=== PATIENT | female | born 1975 | race Caucasian/White ===

== ENCOUNTER → 2016-05-19 | Day surgery (SDC) | payer OTHER ==
[2016-05-09 10:42] VITALS: BMI 29.0
--- NOTE | 2016-05-09 11:04 | PAT Medication Instructions ---
Service Date May 09, 2016. Current Home Medication List Oachrad-Icwqkarnajdtz-Occmkofl (Excedrin Extra Strength), 2 TAB PEG PRN Ibuprofen (Advil), 400 MG PO PRN Multivitamin (Multivitamin), 1 TAB PO QAM Medication Instructions For Your Scheduled Surgery - Check with surgeon for instructions: Karnyqi-Ozypawcgzqjbi-Fvlybrjq (Excedrin Extra Strength), 2 TAB PEG PRN Ibuprofen (Advil), 400 MG PO PRN - Hold the following medications the morning of surgery: Multivitamin (Multivitamin), 1 TAB PO QAM If you have any questions please call us at [phone] (Sarika Hayes PA-C) or [phone] or [phone]
[2016-05-09 11:30] LABS: BASO % 0.5 %; BASO ABS # 0.04 K/uL (0-0.2); COMPLETE YES; EOS % 2.2 %; HEMATOCRIT 38.3 % (37-47); IG% 0.1 %; LYMPH % 25.2 %; LYMPH ABS # 1.84 K/uL (1.2-3.4); MEAN CELL VOLUME 85.5 fL (80-100); MEAN CORPUSCULAR HEMOGLOBIN 29.9 pg (25-34); MEAN PLATELET VOLUME 9.5 fL (7.4-10.4); PLATELET COUNT 249 K/uL (130-400); RED BLOOD COUNT 4.48 M/uL (4.2-5.4); WHITE BLOOD COUNT 7.29 K/uL (4.8-10.8)
[~2016-05-19] VITALS: Ht 165.1 cm; Wt 80.0 kg
[~2016-05-19] MED LIST: ASPI-391 PEG; ATROPINE SULFATE 0.1 MG/ML 5ML SYR IV PRN; DEXAMETHASONE SOD INJ 4 MG/ML VIAL ONE; DiphenhydrAMINE HCL 50 MG/ML VIAL ONE; FENTANYL CITRATE INJ 50 MCG/1 ML 2 ML VIAL ONE; GLYCOPYRROLATE INJ 0.2 MG/ML VIAL ONE; IBUP-1050 PO; IBUPROFEN 600 MG TAB PO PRN; KETOROLAC TROMETHAMINE 30 MG/ML VIAL IV. PRN; KETOROLAC TROMETHAMINE 30 MG/ML VIAL ONE; LACTATED RINGER'S 1000ML 1,000 ML IV SCH; LARYING-O-JET KIT (LTA) EXT ONE; LIDOCAINE HCL 2% 2 ML VIAL (20MG/ML) ONE; METOCLOPRAMIDE HCL INJ 5 MG/ML 2 ML VIAL ONE; MIDAZOLAM HCL 1 MG/ML 2ML VIAL ONE; MULT-506 PO; NEOSTIGMINE METHYLSULFATE 5 MG/5 ML SYR ONE; ONDANSETRON INJ 2 MG/ML 2 ML VIAL IV PRN; ONDANSETRON INJ 2 MG/ML 2 ML VIAL ONE; OXYCODONE/ACETAMINOPHEN 5-325 TAB PO PRN; PROMETHAZINE HCL INJ 12.5 MG in SODIUM CHLORIDE 0.9% 50ML 50 ML IV PRN; PROMETHAZINE HCL INJ 25 MG in SODIUM CHLORIDE 0.9% 50ML 50 ML IV PRN; PROPOFOL IV EMULSION 10 MG/ML 20 ML VIAL IV ONE; ROCURONIUM BROMIDE 10 MG/ML 5 ML VIAL ONE; SODIUM CHLORIDE 0.9% 1000ML 1,000 ML IV SCH
[2016-05-19 09:49] VITALS: BP 107/71; PULSE 69; TEMP 36.5; O2SAT 100; Ht 165.1 cm; Wt 80.0 kg
--- NOTE | 2016-05-19 10:10 | History & Physical Bridge Note ---
H&P Re-Evaluation Bridge Note: I have examined the patient, reviewed the History & Physical and in the interval since the performance of the History & Physical I have noted the following changes of clinical significance: No changes noted
--- NOTE | 2016-05-19 10:47 | Discharge Instructions ---
Discharge Instructions Date of Service May 19, 2016. Visit Reason for Visit: Ovarian Cyst, Abnormal Uterine Bleed Discharge Discharge Diagnosis / Problem: Ovarian cyst Discharge Goals Goal(s): Specific goals Activity Recommendations Activity Limitations: per Instructions/Follow-up section Anesthesia . Post Anesthesia Instructions: If you have had General Anesthesia or IV Sedation: * Do not drive today. * Resume driving when surgeon permits. * Do not make important decisions or sign legal documents today. * Call surgeon for: 1. Temperature elevations greater than 101 degrees F. 2. Uncontrollable pain. 3. Excessive bleeding. 4. Persistent nausea and vomiting. 5. Medication intolerance (nausea, vomiting or rash). * For nausea and vomiting use only clear liquids such as: tea, soda, bouillon until nausea subsides, then gradually increase diet as tolerated. * If you have any concerns or questions, call your surgeon's office. If physician is unavailable and it is an emergency, call 911 or go to the nearest emergency room. . Instructions / Follow-Up Instructions / Follow-Up ACTIVITY RECOMMENDATIONS: * Rest the first 2-3 days. You should be back to your normal activity levels by day 3. * No heavy lifting for 2 weeks. * No intercourse, tampons or douching for 1-2 weeks. * You may shower the next day. * Do not drive anytime that you are taking narcotic pain medicines. RETURN TO SCHOOL/WORK: * May return to school or work after 2-3 days. DIET: Nausea may occur in the immediate post-operative period. If so, take clear liquids such as tea, bouillon, apple juice until all nausea has subsided, then resume usual diet. MEDICATIONS: Resume previous medications unless instructed otherwise by your surgeon. Ibuprofen 200mg 2-3 tablets every 4-6 hours as needed -- OR -- Aleve 2 tablets every 8-12 hours as needed for post-operative discomfort Medications are over the counter. Tylenol may be used if above medications are contraindicated or not preferred. Medication should be taken with food or milk. Do not take on an empty stomach. SPECIAL CARE INSTRUCTIONS: * Check temperature twice daily for one week. report any elevation over 101 degrees. * You may experience some vagina spotting and/or bleeding. This is normal for 1 -2 weeks and should not be heavier than a normal period. If it is unusual in amount, call your physician. * Post-operative discomfort may consist of a sore throat, a "bloated" feeling and pain in the shoulders. these are normal symptoms, which usually only last for 2-3 days. * Remove band-aids tomorrow and shower. There is no need to replace band-aids unless there is drainage or discomfort. FOLLOW UP VISIT: Call your doctor's office for a post-operative 2 week visit if not already scheduled. Diet Recommendations Recommended Home Diet: resume previous diet Pending Studies Studies pending at discharge: no Medical Emergencies . Who to Call and When: Medical Emergencies: If at any time you feel your situation is an emergency, please call 911 immediately. . Non-Emergent Contact Non-Emergency issues call your: Primary Care Provider . . "Provider Documentation" section prepared by Kenisha Krishnan.
--- NOTE | 2016-05-19 12:08 | [facility] Post Operative Brief Note ---
Immediate Operative Summary Operative Date May 19, 2016. Pre-Operative Diagnosis Right ovarian cyst causing pain, irregular menses. Post-Operative Diagnosis Same as preop. Procedure(s) Performed Laparoscopic Right Salpingo-Oophorectomy Surgeon Dr. Krishnan Machine Learning Intern Surgeon(s) Dr. Lepe Estimated Blood Loss 10 ml Findings enlarged right ovary, normal pelvis otherwise Specimens A: Right tube and ovary. Complication(s) None Disposition Recovery Room / PACU
[2016-05-19] MEDS: FENTANYL CITRATE INJ 50 MCG/1 ML 2 ML VIAL IV PRN ×4 (12:10→12:25)
--- NOTE | 2016-05-19 12:39 | Anesthesiology Progress Note ---
Anesthesia Post Op Note Date & Time May 19, 2016 at 12:38 Vital Signs Pain Intensity: 2 Vital Signs Past 12 Hours Date Time Temp Pulse Resp B/P Pulse Ox O2 Delivery O2 Flow Rate FiO2 05/19/16 12:32 55 16 87/50 95 Room Air 05/19/16 12:20 56 17 90/54 99 Room Air 05/19/16 12:10 56 17 86/51 100 Mask 10 05/19/16 12:02 36.6 55 12 84/50 100 Mask 10 05/19/16 09:49 36.5 69 16 107/71 100 Room Air Notes Mental Status: alert / awake / arousable, participated in evaluation Pt Amnestic to Procedure: Yes Nausea / Vomiting: adequately controlled Pain: adequately controlled Airway Patency, RR, SpO2: stable & adequate BP & HR: stable & adequate Hydration State: stable & adequate Anesthetic Complications: no major complications apparent
[2016-05-19 12:50] VITALS: BP 86/61; PULSE 63; TEMP 36.8; O2SAT 97
[2016-05-19 13:21] VITALS: BP 83/64; PULSE 59; O2SAT 100
[2016-05-19 13:50] VITALS: BP 85/51; PULSE 65; TEMP 37; O2SAT 96
--- NOTE | 2016-05-19 13:52 | OPERATIVE REPORT ---
DATE OF OPERATION: 05/19/2016 PREOPERATIVE DIAGNOSIS: Right ovarian cyst causing pain. POSTOPERATIVE DIAGNOSIS: Same as preop. PROCEDURE: Laparoscopic right salpingo-oophorectomy. SURGEON: Dr. Krishnan. PUNCH FINISHER: Dr. Lepe. ESTIMATED BLOOD LOSS: 10 mL. FINDINGS: Enlarged right ovary, normal left ovary, normal tubes and normal appearing uterus. SPECIMENS: Right tube and ovary. COMPLICATIONS: None. DISPOSITION: Stable to the recovery room. DESCRIPTION: Liz was placed on the table in the supine position. A Redding catheter was established and she was prepped and draped in standard sterile fashion and a hard time-out was taken. Umbilical entry was made in an optical manner without complication. The abdomen was insufflated and right and left lower quadrant ports were placed under direct visualization. The LigaSure was used to ligate the infundibulopelvic ligament and the uteroovarian ligament and dissect the right ovary and tube away from the pelvic sidewall. The right ovary was noted to be grossly enlarged essentially filling the pelvis. Once it was detached and moved out of the way we were able to visualize the uterine fundus which looked relatively normal and a left tube and ovary which did look normal as well. The ovary was mostly able to be placed into a 10 cm EndoCatch bag; however, it did not completely fit into the bag and therefore while the ovary was immobilized using the bag a long handle needle was used to jayda and suction the ovary in order to decompress it and allow it to fit fully into the EndoCatch bag. Once decompressed the ovary was able to be secured completely inside the bag which was then brought to the umbilical opening. The mouth for the bag was able to be brought outside the patient's body and the ovary was further decompressed and then sectioned and removed through the umbilical orifice without breaking the EndoCatch bag. Once the entire sample had been retrieved, the umbilical port was reintroduced, laparoscopic camera was reintroduced through the umbilicus and a final inspection of the abdomen and pelvis revealed all working sites were hemostatic and no injury was evident. The gas was then allowed to escape the abdomen and all port sites were closed with a UR-6 being used at the umbilicus, 4-0 Monocryl at all the others and Dermabond dressing applied. The patient will have her Redding removed and be transferred to PACU. I attest to the content of the Intraoperative Record and any orders documented therein. Any exceptio ns are noted below.
== END | disposition home or self-care (01) ==
LOC: C.ACU 09:30
PROVIDERS: ATTEND Obstetrics & Gynecology
DX: D27.0 Benign neoplasm of right ovary (principal); N83.201 Unspecified ovarian cyst, right side; Z80.3 Family history of malignant neoplasm of breast; Z83.3 Family history of diabetes mellitus; Z82.62 Family history of osteoporosis